=== PATIENT | male | born 1955 | race African-American/Black ===

== ENCOUNTER 2016-11-24 14:44 | Emergency (ER) | payer OTHER ==
[~2016-11-24] VITALS: Ht 188 cm; Wt 89.8 kg
[2016-11-24 15:15] VITALS: BP 135/85
[2016-11-24] MEDS ORDERED: Ketorolac 60mg Inj IM ONE (15:30)
--- NOTE | 2016-11-24 15:41 | Emergency Room Report ---
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 has hx of lumbar back problems and previously was given spinal injections several years ago. denies radiation of pain, denies trauma or fall. denies urinary retention, recent spinal procedure, fevers, or hx of neoplastic disease. Pt. reports certain quick movements exacerbate his symptoms. described as "soreness, and tightness". Denies abdominal pain, hematuria, dysuria, Nausea, vomiting, or chills. Denies numbness tingling or loss of sensation or gross motor movements of the extremities, incontinence of bowel or bladder. Denies CP, Palpitations, LOC, AMS , dizziness, Changes in Vision, Sensation, paresthesias, or a sudden severe headache. Allergies: Coded Allergies: No Known Allergies (Unverified , 11/24/16) Patient History Past Medical History: see triage record Past Surgical History: none Pertinent Family History: none Immunizations: UTD Reviewed Nursing Documentation: PMH: Agreed, PSxH: Agreed Nursing Documentation-PMH Past Medical History: No History, Except For Hx Hypertension: Yes Hx Asthma: Yes Review of Systems All Other Systems: negative except mentioned in HPI Physical Exam Vital Signs Date Time Temp Pulse Resp B/P (MAP) Pulse Ox O2 Delivery O2 Flow Rate FiO2 11/24/16 14:47 97.9 75 16 129/77 96 Room Air Sp02 EP Interpretation: reviewed, normal General Appearance: no apparent distress, alert, GCS 15, non-toxic Head: normocephalic, atraumatic Eyes: bilateral eye normal inspection, bilateral eye PERRL ENT: hearing grossly normal, normal voice Neck: full range of motion Respiratory: lungs clear, normal breath sounds, speaking full sentences Cardiovascular #1: regular rate, rhythm Rectal: deferred Genitourinary: normal inspection, no CVA tenderness Musculoskeletal: back normal, gait/station normal, normal range of motion, tender - right paraspinal ttp, no midline spinal ttp, no obvious deformities, no erythema, FROM with mild pain. Neurologic: alert, oriented x3, responsive, motor strength/tone normal, sensory intact, normal gait, speech normal Psychiatric: judgement/insight normal, memory normal, mood/affect normal Reflexes: 2+ knee (R), 2+ knee (L) Skin: normal color, no rash, warm/dry, well hydrated Medical Decision Making PA Attestation Dr. David is my supervising Physician whom patient management has been discussed with. 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 has hx of lumbar back problems and previously was given spinal injections several years ago. denies radiation of pain, denies trauma or fall. denies urinary retention, recent spinal procedure, fevers, or hx of neoplastic disease. Pt. reports certain quick movements exacerbate his symptoms. described as "soreness, and tightness". Denies abdominal pain, hematuria, dysuria, Nausea, vomiting, or chills. Denies numbness tingling or loss of sensation or gross motor movements of the extremities, incontinence of bowel or bladder. Denies CP, Palpitations, LOC, AMS , dizziness, Changes in Vision, Sensation, paresthesias, or a sudden severe headache. Ddx considered but are not limited to Fracture, dislocation, contusion, epidural abscess, Sprain/Strain/Spasm Vital signs: are WNL, pt. is afebrile H&PE are most consistent with muscle spasm, ORDERS: none required at this time. ED INTERVENTIONS: - Toradol IM - Pt. given work note for light duty DISCHARGE: At this time pt. is stable for d/c to home. Will provide printed patient care instructions, and any necessary prescriptions. Care plan and follow up instructions have been discussed with the patient prior to discharge. Last Vital Signs Date Time Temp Pulse Resp B/P (MAP) Pulse Ox O2 Delivery O2 Flow Rate FiO2 11/24/16 14:47 97.9 75 16 129/77 96 Room Air Disposition: HOME, SELF-CARE Condition: Stable Departure Forms: Return to Work Return to Work Date: Nov 25, 2016 Work Restrictions: No Heavy Lifting, No Prolonged Standing, Desk Work Only Other Restrictions: light duty x 1 week, follow up with a primary care provider. Return to Full Activity: Dec 02, 2016 Patient Instructions: Lumbosacral Strain Additional Instructions: Take medications as directed. Follow up with a Primary Care Provider in 3-5 days, even if your symptoms have resolved. --Please review list of primary care clinics, if you do not already have a primary care provider Return sooner to ED if new symptoms occur, or current symptoms become worse. Do not drink alcohol, drive, or operate heavy machinery while taking FLEXERIL as this may cause drowsiness. - Please note that this Emergency Department Report was dictated using [employer] technology software, occasionally this can lead to erroneous entry secondary to interpretation by the dictation equipment. Nadja Irene Nov 24, 2016 15:41
[2016-11-24] MEDS ORDERED: IBUPROFEN600 MG ORAL (15:42)
[2016-11-24] MEDS ORDERED: CYCLOBENZAPRINE10 MG ORAL (15:42)
[2016-11-24 16:15] VITALS: BP 155/56
== END 2016-11-24 16:28 | disposition home or self-care (01) ==
LOC: EMR 16:10
DX: S39.012A Strain of muscle, fascia and tendon of lower back, initial encounter (principal); X50.9XXA Other and unspecified overexertion or strenuous movements or postures, initial encounter; Y92.69 Other specified industrial and construction area as the place of occurrence of the external cause; Y99.0 Civilian activity done for income or pay; I10 Essential (primary) hypertension; J45.909 Unspecified asthma, uncomplicated
CPT/HCPCS: 96372; 99283